=== PATIENT | female | born 1945 | race Caucasian/White ===

== ENCOUNTER 2017-07-28 09:22 | Emergency (ER) | payer MEDICARE, OTHER, MEDICAID | END 2017-07-28 11:30 | disposition home or self-care (01) | LOC: FTE 09:22 | DX: S93.402A Sprain of unspecified ligament of left ankle, initial encounter (principal); W01.0XXA Fall on same level from slipping, tripping and stumbling without subsequent striking against object, initial encounter; Y92.410 Unspecified street and highway as the place of occurrence of the external cause; Z79.84 Long term (current) use of oral hypoglycemic drugs; Z87.891 Personal history of nicotine dependence | CPT/HCPCS: 73610; 99283-25 ==

== ENCOUNTER 2018-05-29 15:27 | Inpatient (IN) | payer MEDICARE, OTHER ==
[2018-05-29 18:13] LABS: ADD MAN DIFF? NO
[2018-05-29] MEDS: SOD CHLORIDE 0.9% 500 ML IV (18:14)
[2018-05-29] MEDS: morphine 2 MG INJ IV ×2 (18:15→21:18)
[2018-05-29 18:16] LABS: BASOPHILS % 0.1 % (0.0-2.0); HEMATOCRIT 40.8 % (37.0-47.0); HEMOGLOBIN 12.4 g/dl (12.0-16.0); LYMPHOCYTES # 1.8 10^3/ul (0.8-2.9); LYMPHOCYTES % 16.1 % (15.0-51.0); MEAN CORPUSCULAR HEMOGLOBIN 21.9 pg (29.0-33.0); MEAN CORPUSCULAR HGB CONC 30.4 g/dl (32.0-37.0); MEAN CORPUSCULAR VOLUME 72.2 fl (82.0-101.0); MEAN PLATELET VOLUME 10.6 fl (7.4-10.4); MONOCYTE # 0.9 10^3/ul (0.3-0.9); MONOCYTES % 7.7 % (0.0-11.0); NEUTROPHIL # 8.4 10^3/ul (1.6-7.5); NEUTROPHILS % 75.7 % (39.0-77.0); PLATELET COUNT 205 10^3/UL (140-415); RED BLOOD COUNT 5.65 10^6/ul (4.20-5.40); RED CELL DISTRIBUTION WIDTH 13.4 % (11.5-14.5)
[2018-05-29 18:16] LABS: WHITE BLOOD COUNT 11.1 10^3/ul (4.8-10.8)
[2018-05-29 18:33] LABS: ANION GAP 13 (5-13); BLOOD UREA NITROGEN 15 mg/dl (7-20); CALCIUM 9.4 mg/dl (8.4-10.2); CARBON DIOXIDE 23 mmol/L (21-31); CHLORIDE 106 mmol/L (97-110); CREATININE 0.55 mg/dl (0.44-1.00); GLUCOSE 236 mg/dl (70-220); POTASSIUM 4.1 mmol/L (3.5-5.1); SODIUM 142 mmol/L (135-144)
[2018-05-29 18:35] LABS: INR 0.94; PROTIME 12.7 Sec (11.9-14.9)
[2018-05-29 18:36] LABS: PARTIAL THROMBOPLASTIN TIME 28.2 Sec (23.0-35.0)
[2018-05-29] MEDS ORDERED: ONDANSETRON 4 MG INJ IV (20:00)
[2018-05-29] MEDS ORDERED: ACETAMINOPHEN 325 MG TAB PO (20:00)
[2018-05-29 21:12] LABS: CREATINE KINASE 43 IU/L (23-200)
[2018-05-29] MEDS: morphine 10 MG INJ IV (21:19)
[2018-05-29 21:25] LABS: CK INDEX 0.9; CK-MB 0.37 ng/ml (0.0-2.4); TROPONIN-I < 0.012 ng/ml (0.000-0.120)
[2018-05-29] MEDS ORDERED: NACL 0.9% 3 ML SYG IV (21:30)
[2018-05-29] MEDS ORDERED: DOCUSATE SODIUM 100 MG CAP PO (21:30)
[2018-05-29] MEDS ORDERED: GLUCAGON 1 MG INJ IM (21:30)
[2018-05-29] MEDS ORDERED: GLUCOSE GEL 15 GRAM TUBE BUCCAL (21:30)
[2018-05-29] MEDS ORDERED: oxyCODONE 5 MG TAB PO (21:30)
[2018-05-29] MEDS ORDERED: DEXTROSE 50% 50 ML SYRINGE IV ×2 (21:30)
[2018-05-29] MEDS ORDERED: GLUCOSE GEL 15 GRAM TUBE PO ×2 (21:30)
[2018-05-29] MEDS: FUROSEMIDE 20 MG INJ IV (23:49)
[2018-05-30] MEDS: RANITIDINE 150 MG TAB PO ×3 (01:00→20:34)
[2018-05-30] MEDS: ATORVASTATIN 20 MG TAB PO ×2 (01:00→20:34)
[2018-05-30] MEDS: MEMANTINE 10 MG TAB PO ×3 (01:00→20:34)
[2018-05-30] MEDS: ASPIRIN (EC) 81 MG TAB PO ×2 (01:00→09:02)
[2018-05-30] MEDS: ACCU-CHEK XX (02:03)
[2018-05-30] MEDS ORDERED: HEPARIN 5,000 UNIT/0.5 ML VIAL ×4 (02:44→13:40)
[2018-05-30] MEDS: HEPARIN 5,000 UNIT/1 ML VIAL SC ×3 (02:53→13:45)
[2018-05-30 03:14] LABS: ADD MAN DIFF? NO
[2018-05-30 03:17] LABS: BASOPHILS % 0.1 % (0.0-2.0); HEMATOCRIT 38.7 % (37.0-47.0); LYMPHOCYTES % 22.3 % (15.0-51.0); MEAN CORPUSCULAR HEMOGLOBIN 22.1 pg (29.0-33.0); MEAN CORPUSCULAR VOLUME 71.1 fl (82.0-101.0); MEAN PLATELET VOLUME 10.4 fl (7.4-10.4); MONOCYTE # 0.7 10^3/ul (0.3-0.9); MONOCYTES % 8.4 % (0.0-11.0); NEUTROPHIL # 6.1 10^3/ul (1.6-7.5); NEUTROPHILS % 68.9 % (39.0-77.0); PLATELET COUNT 203 10^3/UL (140-415); RED BLOOD COUNT 5.44 10^6/ul (4.20-5.40); RED CELL DISTRIBUTION WIDTH 13.6 % (11.5-14.5)
[2018-05-30 03:17] LABS: WHITE BLOOD COUNT 8.8 10^3/ul (4.8-10.8)
[2018-05-30 03:39] LABS: HEMOGLOBIN A1C 7.7 % (0-5.9)
[2018-05-30 03:49] LABS: ALANINE AMINOTRANSFERASE 10 IU/L (13-69); ALBUMIN 3.9 g/dl (3.3-4.9); ALBUMIN/GLOBULIN RATIO 1.18; ALKALINE PHOSPHATASE 69 IU/L (42-121); ANION GAP 11 (5-13); ASPARTATE AMINO TRANSFERASE 18 IU/L (15-46); BILIRUBIN,INDIRECT 0.5 mg/dl (0-1.1); BILIRUBIN,TOTAL 0.5 mg/dl (0.2-1.3); BLOOD UREA NITROGEN 15 mg/dl (7-20); CALCIUM 9.2 mg/dl (8.4-10.2); CARBON DIOXIDE 27 mmol/L (21-31); CHLORIDE 105 mmol/L (97-110); CHOL/HDL RATIO 6.6 RATIO; CHOLESTEROL 266 mg/dl (100-200); CREATINE KINASE 33 IU/L (23-200); CREATININE 0.61 mg/dl (0.44-1.00); GLUCOSE 206 mg/dl (70-220); HDL CHOLESTEROL 40 mg/dl (33-92); LDL CHOLESTEROL,CALCULATED 191 mg/dl; MAGNESIUM 1.8 mg/dl (1.7-2.5); POTASSIUM 4.2 mmol/L (3.5-5.1); SODIUM 143 mmol/L (135-144); TOTAL PROTEIN 7.2 g/dl (6.1-8.1); TRIGLYCERIDES 175 mg/dl (0-149)
[2018-05-30 04:00] LABS: CK-MB 0.34 ng/ml (0.0-2.4); TROPONIN-I < 0.012 ng/ml (0.000-0.120)
[2018-05-30 04:46] LABS: B-TYPE NATRIURETIC PEPTIDE 392 PG/ML (0-125)
[2018-05-30 04:57] LABS: % IRON SATURATION 15 % SAT (22-52)
[2018-05-30 05:03] LABS: IRON 48 ug/dl (35-150); TOTAL IRON BINDING CAPACITY 311 ug/dl (241-421)
[2018-05-30 06:20] LABS: FERRITIN 57.2 ng/ml (11.1-264.0)
[2018-05-30] MEDS: HYDROmorphONE 0.5 MG/0.5 ML SYG IV ×3 (06:40→19:17)
[2018-05-30] MEDS: INSULIN ASPART [NOVOLOG] 3 ML PEN SC ×4 (07:50→20:34)
[2018-05-30] MEDS: FLUTICASONE/VILANTEROL 100-25 INH (09:00)
[2018-05-30] MEDS: AMLODIPINE 5 MG TAB PO (09:00)
[2018-05-30] MEDS: INFLUENZA VIRUS VACCINE 0.5 ML (DISPENSING) IM* (09:06)
[2018-05-30 09:57] LABS: CREATINE KINASE 24 IU/L (23-200)
[2018-05-30 10:10] LABS: CK-MB 0.24 ng/ml (0.0-2.4); TROPONIN-I < 0.012 ng/ml (0.000-0.120)
[2018-05-30] MEDS: DOCUSATE SODIUM 100 MG CAP PO ×2 (13:44→20:33)
[2018-05-30] MEDS: ONDANSETRON 4 MG INJ IV (17:58)
[2018-05-31] MEDS: ACCU-CHEK XX (02:00)
[2018-05-31] MEDS: BISACODYL 10 MG SUPP PR (04:59)
[2018-05-31 05:15] LABS: ADD MAN DIFF? NO; BASOPHILS % 0.1 % (0.0-2.0); HEMATOCRIT 38.8 % (37.0-47.0); HEMOGLOBIN 11.9 g/dl (12.0-16.0); LYMPHOCYTES # 1.7 10^3/ul (0.8-2.9); LYMPHOCYTES % 18.5 % (15.0-51.0); MEAN CORPUSCULAR HGB CONC 30.7 g/dl (32.0-37.0); MEAN CORPUSCULAR VOLUME 71.6 fl (82.0-101.0); MONOCYTE # 0.8 10^3/ul (0.3-0.9); NEUTROPHIL # 6.8 10^3/ul (1.6-7.5); NEUTROPHILS % 73.1 % (39.0-77.0); PLATELET COUNT 204 10^3/UL (140-415); RED BLOOD COUNT 5.42 10^6/ul (4.20-5.40); RED CELL DISTRIBUTION WIDTH 13.5 % (11.5-14.5)
[2018-05-31 05:15] LABS: WHITE BLOOD COUNT 9.3 10^3/ul (4.8-10.8)
[2018-05-31] MEDS: HYDROmorphONE 0.5 MG/0.5 ML SYG IV ×2 (06:12→10:12)
[2018-05-31 06:32] LABS: ANION GAP 10 (5-13); BLOOD UREA NITROGEN 20 mg/dl (7-20); CALCIUM 9.4 mg/dl (8.4-10.2); CARBON DIOXIDE 27 mmol/L (21-31); CHLORIDE 101 mmol/L (97-110); CREATININE 0.61 mg/dl (0.44-1.00); GLUCOSE 189 mg/dl (70-220); MAGNESIUM 1.8 mg/dl (1.7-2.5); PHOSPHORUS 3.6 mg/dl (2.5-4.9); POTASSIUM 3.9 mmol/L (3.5-5.1); SODIUM 138 mmol/L (135-144)
[2018-05-31] MEDS ORDERED: DESFLURANE 15 MIN (07:00)
[2018-05-31] MEDS ORDERED: ALBUMIN HUMAN 5% 250 ML INJ (07:00)
[2018-05-31] MEDS: INSULIN ASPART [NOVOLOG] 3 ML PEN SC ×4 (08:34→21:14)
[2018-05-31] MEDS: DEXTROSE 5%-0.45% NACL 1,000 ML IV ×2 (08:40→22:01)
[2018-05-31] MEDS: RANITIDINE 150 MG TAB PO ×2 (09:00→20:51)
[2018-05-31] MEDS: FLUTICASONE/VILANTEROL 100-25 INH (09:00)
[2018-05-31] MEDS: MEMANTINE 10 MG TAB PO ×2 (09:00→21:14)
[2018-05-31] MEDS: DOCUSATE SODIUM 100 MG CAP PO ×2 (09:00→20:49)
[2018-05-31] MEDS: ASPIRIN (EC) 81 MG TAB PO (09:00)
[2018-05-31] MEDS: AMLODIPINE 5 MG TAB PO (09:00)
[2018-05-31] MEDS ORDERED: PROPOFOL 20 ML (14:36)
[2018-05-31] MEDS ORDERED: GLYCOPYRROLATE 0.4 MG INJ (14:36)
[2018-05-31] MEDS ORDERED: ROCURONIUM 50 MG INJ (14:36)
[2018-05-31] MEDS ORDERED: morphine SULFATE/PF (10 MG/10 ML) INJ (14:37)
[2018-05-31] MEDS ORDERED: NEOSTIGMINE 3 MG/3 ML SYRINGE (14:37)
[2018-05-31] MEDS ORDERED: ONDANSETRON 4 MG INJ (14:37)
[2018-05-31] MEDS ORDERED: CEFAZOLIN 1 GM INJ (14:37)
[2018-05-31] MEDS ORDERED: FENTAnyl 50 MCG/ML VIAL (14:37)
[2018-05-31] MEDS ORDERED: DEXAMETHASONE 4 MG/ML 1 ML INJ (14:37)
[2018-05-31] MEDS ORDERED: MIDAZOLAM 1 MG/ML 2 ML INJ (14:37)
[2018-05-31] MEDS ORDERED: HYDROmorphONE 1 MG/ML SYG IV (18:00)
[2018-05-31] MEDS ORDERED: NACL 0.9% 3 ML SYG IV (18:00)
[2018-05-31] MEDS ORDERED: CEFAZOLIN 1 GM/50 ML (PMX) 50 ML IVPB (18:09)
[2018-05-31] MEDS ORDERED: METOCLOPRAMIDE 10 MG INJ (18:22)
[2018-05-31] MEDS ORDERED: NALBUPHINE HCL (10 MG/1 ML) INJ IV (18:30)
[2018-05-31] MEDS ORDERED: LABETALOL HCL 20MG INJ IV (18:30)
[2018-05-31] MEDS ORDERED: morphine 4 MG/ML VIAL IV (18:30)
[2018-05-31] MEDS ORDERED: NALOXONE (0.4 MG/ML) INJ IV (18:30)
[2018-05-31] MEDS ORDERED: ONDANSETRON 4 MG INJ IV ×2 (18:30)
[2018-05-31] MEDS ORDERED: TRIMETHOBENZAMIDE 100 MG/ML VIAL IM (18:30)
[2018-05-31] MEDS ORDERED: DIPHENHYDRAMINE 50 MG INJ IV (18:30)
[2018-05-31] MEDS ORDERED: hydrALAzine 20 MG INJ IV (18:30)
[2018-05-31] MEDS ORDERED: ZOLPIDEM 5 MG TAB PO (18:30)
[2018-05-31] MEDS ORDERED: FENTAnyl 50 MCG/ML VIAL IV ×3 (18:30)
[2018-05-31] MEDS ORDERED: HYDROmorphONE 1 MG/5 ML IV SYRINGE IV ×3 (18:30)
[2018-05-31] MEDS ORDERED: HYDROmorphONE 0.5 MG/0.5 ML SYG IV ×2 (18:30)
[2018-05-31] MEDS: CEFAZOLIN 1 GM/50 ML (PMX) 50 ML IVPB (18:34)
[2018-05-31] MEDS: METOCLOPRAMIDE 10 MG INJ IV (18:38)
[2018-05-31 18:46] LABS: HEMATOCRIT 31.9 % (37.0-47.0); HEMOGLOBIN 9.8 g/dl (12.0-16.0)
[2018-05-31 19:13] LABS: ANION GAP 10 (5-13); BLOOD UREA NITROGEN 16 mg/dl (7-20); CALCIUM 8.3 mg/dl (8.4-10.2); CARBON DIOXIDE 26 mmol/L (21-31); CHLORIDE 104 mmol/L (97-110); CREATININE 0.48 mg/dl (0.44-1.00); GLUCOSE 222 mg/dl (70-220); POTASSIUM 3.7 mmol/L (3.5-5.1); SODIUM 140 mmol/L (135-144)
[2018-05-31] MEDS: LACTATED RINGER'S 1,000 ML IV (20:28)
[2018-05-31] MEDS: ATORVASTATIN 20 MG TAB PO (20:51)
[2018-06-01] MEDS: LACTATED RINGER'S 1,000 ML IV ×2 (00:46→05:21)
[2018-06-01] MEDS: CEFAZOLIN 1 GM/50 ML (PMX) 50 ML IVPB ×2 (01:50→09:55)
[2018-06-01] MEDS: ACCU-CHEK XX (01:50)
[2018-06-01 05:09] LABS: ADD MAN DIFF? NO
[2018-06-01] MEDS: DEXTROSE 5%-0.45% NACL 1,000 ML IV (05:18)
[2018-06-01 05:21] LABS: WHITE BLOOD COUNT 8.2 10^3/ul (4.8-10.8)
[2018-06-01 05:21] LABS: HEMATOCRIT 30.2 % (37.0-47.0); HEMOGLOBIN 9.3 g/dl (12.0-16.0); LYMPHOCYTES # 0.7 10^3/ul (0.8-2.9); LYMPHOCYTES % 8.6 % (15.0-51.0); MEAN CORPUSCULAR HEMOGLOBIN 22.1 pg (29.0-33.0); MEAN CORPUSCULAR HGB CONC 30.8 g/dl (32.0-37.0); MEAN CORPUSCULAR VOLUME 71.7 fl (82.0-101.0); MONOCYTE # 0.6 10^3/ul (0.3-0.9); MONOCYTES % 6.7 % (0.0-11.0); NEUTROPHIL # 6.9 10^3/ul (1.6-7.5); NEUTROPHILS % 84.1 % (39.0-77.0); PLATELET COUNT 141 10^3/UL (140-415); RED BLOOD COUNT 4.21 10^6/ul (4.20-5.40); RED CELL DISTRIBUTION WIDTH 13.2 % (11.5-14.5)
[2018-06-01 05:42] LABS: ANION GAP 11 (5-13); BLOOD UREA NITROGEN 16 mg/dl (7-20); CALCIUM 8.6 mg/dl (8.4-10.2); CARBON DIOXIDE 28 mmol/L (21-31); CHLORIDE 101 mmol/L (97-110); CREATININE 0.49 mg/dl (0.44-1.00); GLUCOSE 228 mg/dl (70-220); MAGNESIUM 1.5 mg/dl (1.7-2.5); PHOSPHORUS 4.3 mg/dl (2.5-4.9); POTASSIUM 4.3 mmol/L (3.5-5.1); SODIUM 140 mmol/L (135-144)
[2018-06-01] MEDS: ASPIRIN (EC) 81 MG TAB PO (08:56)
[2018-06-01] MEDS: MEMANTINE 10 MG TAB PO ×2 (08:57→20:25)
[2018-06-01] MEDS: DOCUSATE SODIUM 100 MG CAP PO ×2 (08:57→20:26)
[2018-06-01] MEDS: FLUTICASONE/VILANTEROL 100-25 INH (08:57)
[2018-06-01] MEDS: AMLODIPINE 5 MG TAB PO (08:57)
[2018-06-01] MEDS: RANITIDINE 150 MG TAB PO ×2 (08:58→20:25)
[2018-06-01] MEDS: ENOXAPARIN 40 MG/0.4 ML SYG SC (08:59)
[2018-06-01] MEDS: INSULIN ASPART [NOVOLOG] 3 ML PEN SC ×5 (08:59→22:33)
[2018-06-01] MEDS: MAGNESIUM SULFATE 2 GM/50 ML 50 ML IVPB (12:23)
[2018-06-01] MEDS: ACETAMINOPHEN 325 MG TAB PO (12:23)
[2018-06-01] MEDS: KETOROLAC 30 MG INJ IV ×2 (17:31→23:54)
[2018-06-01] MEDS: HYDROmorphONE 0.5 MG/0.5 ML SYG IV (20:25)
[2018-06-01] MEDS: ATORVASTATIN 20 MG TAB PO (20:26)
[2018-06-01] MEDS: INSULIN GLARGINE [LANTus] (100 UNITS/ML) SYG SC (22:34)
[2018-06-02] MEDS: ACCU-CHEK XX (03:00)
[2018-06-02 05:19] LABS: ADD MAN DIFF? NO
[2018-06-02 05:26] LABS: WHITE BLOOD COUNT 8.3 10^3/ul (4.8-10.8)
[2018-06-02 05:26] LABS: BASOPHILS % 0.1 % (0.0-2.0); HEMATOCRIT 29.5 % (37.0-47.0); HEMOGLOBIN 9.2 g/dl (12.0-16.0); LYMPHOCYTES # 1.7 10^3/ul (0.8-2.9); LYMPHOCYTES % 20.4 % (15.0-51.0); MEAN CORPUSCULAR HEMOGLOBIN 22.1 pg (29.0-33.0); MEAN CORPUSCULAR HGB CONC 31.2 g/dl (32.0-37.0); MEAN CORPUSCULAR VOLUME 70.9 fl (82.0-101.0); MONOCYTE # 0.8 10^3/ul (0.3-0.9); MONOCYTES % 10.1 % (0.0-11.0); NEUTROPHIL # 5.7 10^3/ul (1.6-7.5); NEUTROPHILS % 68.9 % (39.0-77.0); PLATELET COUNT 151 10^3/UL (140-415); RED BLOOD COUNT 4.16 10^6/ul (4.20-5.40); RED CELL DISTRIBUTION WIDTH 13.2 % (11.5-14.5)
[2018-06-02 05:48] LABS: ANION GAP 8 (5-13); BLOOD UREA NITROGEN 19 mg/dl (7-20); CALCIUM 8.1 mg/dl (8.4-10.2); CARBON DIOXIDE 31 mmol/L (21-31); CHLORIDE 100 mmol/L (97-110); CREATININE 0.59 mg/dl (0.44-1.00); GLUCOSE 222 mg/dl (70-220); MAGNESIUM 2.1 mg/dl (1.7-2.5); PHOSPHORUS 2.5 mg/dl (2.5-4.9); POTASSIUM 3.2 mmol/L (3.5-5.1); SODIUM 139 mmol/L (135-144)
[2018-06-02] MEDS: RANITIDINE 150 MG TAB PO ×2 (08:47→20:21)
[2018-06-02] MEDS: ASPIRIN (EC) 81 MG TAB PO (08:47)
[2018-06-02] MEDS: AMLODIPINE 5 MG TAB PO (08:48)
[2018-06-02] MEDS: DOCUSATE SODIUM 100 MG CAP PO ×2 (08:48→20:21)
[2018-06-02] MEDS: MEMANTINE 10 MG TAB PO ×2 (08:48→20:21)
[2018-06-02] MEDS: FLUTICASONE/VILANTEROL 100-25 INH (08:49)
[2018-06-02] MEDS: INSULIN ASPART [NOVOLOG] 3 ML PEN SC ×5 (08:51→21:30)
[2018-06-02] MEDS: ENOXAPARIN 40 MG/0.4 ML SYG SC (08:59)
[2018-06-02] MEDS: metFORMIN 500 MG TAB PO (10:59)
[2018-06-02] MEDS: POTASSIUM CHLORIDE (SR) 20 MEQ TAB PO ×2 (10:59→15:07)
[2018-06-02] MEDS: HYDROCODONE/APAP (5/325) TAB PO ×2 (10:59→21:33)
[2018-06-02] MEDS: LINAGLIPTIN 5 MG TABLET PO (12:58)
[2018-06-02] MEDS: BISACODYL (EC) 5 MG TAB PO (12:58)
[2018-06-02] MEDS: KETOROLAC 30 MG INJ IV (12:58)
[2018-06-02] MEDS: ATORVASTATIN 20 MG TAB PO (20:21)
[2018-06-03] MEDS: ACCU-CHEK XX (02:15)
[2018-06-03 05:30] LABS: ADD MAN DIFF? NO
[2018-06-03 05:37] LABS: WHITE BLOOD COUNT 7.3 10^3/ul (4.8-10.8)
[2018-06-03 05:37] LABS: HEMATOCRIT 27.9 % (37.0-47.0); HEMOGLOBIN 8.6 g/dl (12.0-16.0); LYMPHOCYTES % 26.7 % (15.0-51.0); MEAN CORPUSCULAR HEMOGLOBIN 22.2 pg (29.0-33.0); MEAN CORPUSCULAR HGB CONC 30.8 g/dl (32.0-37.0); MEAN CORPUSCULAR VOLUME 72.1 fl (82.0-101.0); MONOCYTE # 0.8 10^3/ul (0.3-0.9); MONOCYTES % 10.2 % (0.0-11.0); NEUTROPHIL # 4.6 10^3/ul (1.6-7.5); NEUTROPHILS % 62.7 % (39.0-77.0); PLATELET COUNT 156 10^3/UL (140-415); RED BLOOD COUNT 3.87 10^6/ul (4.20-5.40); RED CELL DISTRIBUTION WIDTH 13.8 % (11.5-14.5)
[2018-06-03 06:01] LABS: ANION GAP 8 (5-13); BLOOD UREA NITROGEN 14 mg/dl (7-20); CALCIUM 7.9 mg/dl (8.4-10.2); CARBON DIOXIDE 28 mmol/L (21-31); CHLORIDE 104 mmol/L (97-110); CREATININE 0.46 mg/dl (0.44-1.00); GLUCOSE 167 mg/dl (70-220); MAGNESIUM 2.1 mg/dl (1.7-2.5); PHOSPHORUS 2.6 mg/dl (2.5-4.9); POTASSIUM 3.6 mmol/L (3.5-5.1); SODIUM 140 mmol/L (135-144)
[2018-06-03] MEDS: DOCUSATE SODIUM 100 MG CAP PO (08:53)
[2018-06-03] MEDS: metFORMIN 500 MG TAB PO (08:53)
[2018-06-03] MEDS: ASPIRIN (EC) 81 MG TAB PO (08:54)
[2018-06-03] MEDS: LINAGLIPTIN 5 MG TABLET PO (08:55)
[2018-06-03] MEDS: RANITIDINE 150 MG TAB PO (08:55)
[2018-06-03] MEDS: MEMANTINE 10 MG TAB PO (08:56)
[2018-06-03] MEDS: ENOXAPARIN 40 MG/0.4 ML SYG SC (08:59)
[2018-06-03] MEDS: FLUTICASONE/VILANTEROL 100-25 INH (09:00)
[2018-06-03] MEDS: INSULIN ASPART [NOVOLOG] 3 ML PEN SC ×2 (09:00→12:48)
[2018-06-03] MEDS: AMLODIPINE 5 MG TAB PO (09:00)
[2018-06-03] MEDS ORDERED: OXYCODONE/ACETAMINOPHEN (10/325) TAB PO (09:30)
[2018-06-03] MEDS ORDERED: OXYCODONE/ACETAMINOPHEN (5/325) TAB PO (09:30)
[2018-06-03 11:56] LABS: HEMATOCRIT 28.7 % (37.0-47.0); HEMOGLOBIN 8.9 g/dl (12.0-16.0)
[2018-06-03] MEDS: INSULIN GLARGINE [LANTus] (100 UNITS/ML) SYG SC (12:52)
[2018-06-04] MEDS ORDERED: ASPIRIN 325 MG TAB PO (09:00)
== END 2018-06-03 14:20 | DRG 470 ==
LOC: MS1 19:53 → E/R 15:27
PROC: 0SRS0JA Replacement of Left Hip Joint, Femoral Surface with Synthetic Substitute, Uncemented, Open Approach (ICD-10-PCS; principal; 2018-05-31 14:57)
DX: S72.012A Unspecified intracapsular fracture of left femur, initial encounter for closed fracture (principal); D62 Acute posthemorrhagic anemia; J44.9 Chronic obstructive pulmonary disease, unspecified; F02.80 Dementia in other diseases classified elsewhere, unspecified severity, without behavioral disturbance, psychotic disturbance, mood disturbance, and anxiety; E11.9 Type 2 diabetes mellitus without complications; G30.9 Alzheimer's disease, unspecified; E78.5 Hyperlipidemia, unspecified; W10.8XXA Fall (on) (from) other stairs and steps, initial encounter; Y93.89 Activity, other specified; Y92.89 Other specified places as the place of occurrence of the external cause; Y99.8 Other external cause status; Z79.4 Long term (current) use of insulin; Z79.02 Long term (current) use of antithrombotics/antiplatelets; Z79.82 Long term (current) use of aspirin
CPT/HCPCS: 36415; 71045; 72170; 72192; 73500; 73510; 80048; 80053; 80061; 82550; 82553; 82728; 82962; 83036; 83540; 83735; 83880; 84100; 84443; 84484; 85014; 85018; 85025; 85610; 85730; 88305; 90686; 93005; 93306; 93971; 96374; 97110; 97116; 97162; 97530; 99285-25

== ENCOUNTER 2018-06-03 14:27 | Inpatient (IN) | payer MEDICARE, OTHER ==
[2018-06-03] MEDS ORDERED: BISACODYL 10 MG SUPP PR (14:30)
[2018-06-03] MEDS ORDERED: PENDING SANTYL ORDER FOR WOUND CARE XX (14:30)
[2018-06-03] MEDS ORDERED: ACETAMINOPHEN 325 MG TAB PO ×2 (14:30→16:00)
[2018-06-03] MEDS ORDERED: LACTULOSE 30ML CUP PO (14:30)
[2018-06-03] MEDS ORDERED: MAGNESIUM HYDROXIDE 30ML CUP PO (14:30)
[2018-06-03] MEDS ORDERED: BISACODYL (EC) 5 MG TAB PO (16:00)
[2018-06-03] MEDS ORDERED: GLUCOSE GEL 15 GRAM TUBE PO ×2 (16:00)
[2018-06-03] MEDS ORDERED: OXYCODONE/ACETAMINOPHEN (5/325) TAB PO (16:00)
[2018-06-03] MEDS ORDERED: DEXTROSE 50% 50 ML SYRINGE IV ×2 (16:00)
[2018-06-03] MEDS ORDERED: GLUCOSE GEL 15 GRAM TUBE BUCCAL (16:00)
[2018-06-03] MEDS ORDERED: GLUCAGON 1 MG INJ IM (16:00)
[2018-06-03] MEDS ORDERED: NACL 0.9% 3 ML SYG IV (16:00)
[2018-06-03] MEDS ORDERED: NALOXONE (0.4 MG/ML) INJ IV (16:00)
[2018-06-03] MEDS: INSULIN ASPART [NOVOLOG] 3 ML PEN SC ×2 (17:30→20:31)
[2018-06-03] MEDS: OXYCODONE/ACETAMINOPHEN (10/325) TAB PO ×2 (17:33→22:39)
[2018-06-03 18:18] LABS: ADD UMIC YES; UR ASCORBIC ACID NEGATIVE (NEGATIVE); UR BILIRUBIN (Dip) NEGATIVE (NEGATIVE); UR BLOOD (Dip) NEGATIVE (NEGATIVE); UR BUDDING YEAST FEW /HPF (NONE SEEN); UR CLARITY CLEAR (CLEAR); UR COLOR YELLOW (YELLOW); UR GLUCOSE (Dip) 3+ mg/dL (NEGATIVE); UR KETONES (Dip) NEGATIVE (NEGATIVE); UR LEUKOCYTE ESTERASE (Dip) 1+ Leu/ul (NEGATIVE); UR NITRITE (Dip) NEGATIVE (NEGATIVE); UR RBC 3 /HPF (0-5); UR SPECIFIC GRAVITY (Dip) 1.029 (1.003-1.030); UR SQUAMOUS EPITHELIAL CELL FEW /HPF (FEW); UR TOTAL PROTEIN (Dip) NEGATIVE (NEGATIVE); UR UROBILINOGEN (Dip) 1+ mg/dL (NEGATIVE); UR WBC 20 /HPF (0-5)
[2018-06-03] MEDS: SENNA TAB PO (20:27)
[2018-06-03] MEDS: RANITIDINE 150 MG TAB PO (20:27)
[2018-06-03] MEDS: DOCUSATE SODIUM 100 MG CAP PO (20:27)
[2018-06-03] MEDS ORDERED: DOCUSATE SODIUM 100 MG CAP PO (21:00)
[2018-06-03] MEDS: MEMANTINE 10 MG TAB PO (21:00)
[2018-06-03] MEDS: ATORVASTATIN 20 MG TAB PO (21:00)
[2018-06-04] MEDS: ACCU-CHEK XX (02:06)
[2018-06-04 06:58] LABS: ADD MAN DIFF? NO
[2018-06-04 07:16] LABS: WHITE BLOOD COUNT 6.6 10^3/ul (4.8-10.8)
[2018-06-04 07:16] LABS: BASOPHILS % 0.2 % (0.0-2.0); HEMOGLOBIN 8.6 g/dl (12.0-16.0); LYMPHOCYTES # 1.9 10^3/ul (0.8-2.9); LYMPHOCYTES % 29.3 % (15.0-51.0); MEAN CORPUSCULAR HEMOGLOBIN 22.4 pg (29.0-33.0); MEAN CORPUSCULAR HGB CONC 30.7 g/dl (32.0-37.0); MEAN CORPUSCULAR VOLUME 72.9 fl (82.0-101.0); MEAN PLATELET VOLUME 10.6 fl (7.4-10.4); MONOCYTE # 0.7 10^3/ul (0.3-0.9); MONOCYTES % 10.3 % (0.0-11.0); NEUTROPHIL # 3.9 10^3/ul (1.6-7.5); NEUTROPHILS % 59.6 % (39.0-77.0); PLATELET COUNT 182 10^3/UL (140-415); RED BLOOD COUNT 3.84 10^6/ul (4.20-5.40); RED CELL DISTRIBUTION WIDTH 13.7 % (11.5-14.5)
[2018-06-04 07:37] LABS: ALANINE AMINOTRANSFERASE 19 IU/L (13-69); ALBUMIN 2.9 g/dl (3.3-4.9); ALBUMIN/GLOBULIN RATIO 1.03; ALKALINE PHOSPHATASE 61 IU/L (42-121); ASPARTATE AMINO TRANSFERASE 17 IU/L (15-46); BILIRUBIN,INDIRECT 0.3 mg/dl (0-1.1); BILIRUBIN,TOTAL 0.3 mg/dl (0.2-1.3); BLOOD UREA NITROGEN 12 mg/dl (7-20); CALCIUM 8.3 mg/dl (8.4-10.2); CARBON DIOXIDE 32 mmol/L (21-31); CREATININE 0.48 mg/dl (0.44-1.00); GLUCOSE 164 mg/dl (70-220); POTASSIUM 3.9 mmol/L (3.5-5.1); SODIUM 141 mmol/L (135-144); TOTAL PROTEIN 5.7 g/dl (6.1-8.1)
[2018-06-04] MEDS: OXYCODONE/ACETAMINOPHEN (10/325) TAB PO ×2 (08:21→21:57)
[2018-06-04] MEDS: FLUTICASONE/VILANTEROL 100-25 INH (08:22)
[2018-06-04] MEDS: metFORMIN 500 MG TAB PO (08:22)
[2018-06-04 08:24] LABS: ANION GAP 7 (5-13); CHLORIDE 102 mmol/L (97-110)
[2018-06-04] MEDS: AMLODIPINE 5 MG TAB PO (08:24)
[2018-06-04] MEDS: ASPIRIN 325 MG TAB PO (08:26)
[2018-06-04] MEDS: INSULIN ASPART [NOVOLOG] 3 ML PEN SC ×4 (08:28→20:35)
[2018-06-04] MEDS: INSULIN GLARGINE [LANTus] (100 UNITS/ML) SYG SC (08:29)
[2018-06-04] MEDS: DOCUSATE SODIUM 100 MG CAP PO ×2 (08:35→20:38)
[2018-06-04] MEDS: MEMANTINE 10 MG TAB PO ×2 (08:36→20:39)
[2018-06-04] MEDS: LINAGLIPTIN 5 MG TABLET PO (08:36)
[2018-06-04] MEDS: RANITIDINE 150 MG TAB PO ×2 (09:00→20:39)
[2018-06-04] MEDS ORDERED: SOD FERRIC GLUC COMPLX 125 MG in SOD CHLORIDE 0.9% 100 ML IVPB (13:00)
[2018-06-04] MEDS: SENNA TAB PO (20:39)
[2018-06-04] MEDS: ATORVASTATIN 20 MG TAB PO (20:39)
[2018-06-04] MEDS: ONDANSETRON 4 MG INJ IV (22:49)
[2018-06-05] MEDS: ACCU-CHEK XX (02:00)
[2018-06-05] MEDS: metFORMIN 500 MG TAB PO (07:35)
[2018-06-05] MEDS: RANITIDINE 150 MG TAB PO (08:22)
[2018-06-05] MEDS: INSULIN GLARGINE [LANTus] (100 UNITS/ML) SYG SC (08:23)
[2018-06-05] MEDS: FLUTICASONE/VILANTEROL 100-25 INH (08:23)
[2018-06-05] MEDS: INSULIN ASPART [NOVOLOG] 3 ML PEN SC ×4 (08:24→20:41)
[2018-06-05] MEDS: OXYCODONE/ACETAMINOPHEN (10/325) TAB PO ×2 (08:32→22:01)
[2018-06-05 08:58] LABS: ADD MAN DIFF? NO
[2018-06-05] MEDS: DOCUSATE SODIUM 100 MG CAP PO ×2 (09:00→20:51)
[2018-06-05] MEDS: LINAGLIPTIN 5 MG TABLET PO (09:00)
[2018-06-05] MEDS: ASPIRIN 325 MG TAB PO (09:00)
[2018-06-05] MEDS: MEMANTINE 10 MG TAB PO ×2 (09:00→20:53)
[2018-06-05] MEDS: AMLODIPINE 5 MG TAB PO (09:00)
[2018-06-05 09:01] LABS: BASOPHILS % 0.1 % (0.0-2.0); HEMATOCRIT 33.8 % (37.0-47.0); HEMOGLOBIN 10.3 g/dl (12.0-16.0); LYMPHOCYTES # 1.4 10^3/ul (0.8-2.9); LYMPHOCYTES % 16.2 % (15.0-51.0); MEAN CORPUSCULAR HEMOGLOBIN 22.2 pg (29.0-33.0); MEAN CORPUSCULAR HGB CONC 30.5 g/dl (32.0-37.0); MEAN CORPUSCULAR VOLUME 72.7 fl (82.0-101.0); MONOCYTE # 0.8 10^3/ul (0.3-0.9); MONOCYTES % 8.8 % (0.0-11.0); NEUTROPHIL # 6.4 10^3/ul (1.6-7.5); NEUTROPHILS % 74.2 % (39.0-77.0); PLATELET COUNT 285 10^3/UL (140-415); RED BLOOD COUNT 4.65 10^6/ul (4.20-5.40); RED CELL DISTRIBUTION WIDTH 13.2 % (11.5-14.5)
[2018-06-05 09:01] LABS: WHITE BLOOD COUNT 8.6 10^3/ul (4.8-10.8)
[2018-06-05 09:02] LABS: RETICULOCYTE COUNT # 0.103 X10^6 (0.020-0.110); RETICULOCYTE COUNT % 2.2 % (0.5-1.5)
[2018-06-05 09:02] LABS: RETICULOCYTE RBC 4.61
[2018-06-05 09:31] LABS: ANION GAP 13 (5-13); BLOOD UREA NITROGEN 10 mg/dl (7-20); CALCIUM 9.2 mg/dl (8.4-10.2); CARBON DIOXIDE 30 mmol/L (21-31); CHLORIDE 99 mmol/L (97-110); GLUCOSE 190 mg/dl (70-220); IRON 37 ug/dl (35-150); MAGNESIUM 1.7 mg/dl (1.7-2.5); PHOSPHORUS 4.2 mg/dl (2.5-4.9); POTASSIUM 3.5 mmol/L (3.5-5.1); SODIUM 142 mmol/L (135-144)
[2018-06-05 09:40] LABS: % IRON SATURATION 15 % SAT (22-52); TOTAL IRON BINDING CAPACITY 245 ug/dl (241-421)
[2018-06-05] MEDS ORDERED: PANTOPRAZOLE 40 MG INJ IV (10:00)
[2018-06-05 10:39] LABS: LACTATE DEHYDROGENASE 602 IU/L (313-618)
[2018-06-05 11:15] LABS: FERRITIN 74.9 ng/ml (11.1-264.0)
[2018-06-05] MEDS: ONDANSETRON 4 MG TAB PO (11:27)
[2018-06-05] MEDS: PANTOPRAZOLE (EC) 40 MG TAB PO (11:27)
[2018-06-05] MEDS: SUCRALFATE (100 MG/ML) 10ML CUP PO ×3 (11:53→20:51)
[2018-06-05] MEDS: ATORVASTATIN 20 MG TAB PO (20:53)
[2018-06-05] MEDS: SENNA TAB PO (20:55)
[2018-06-06] MEDS: ACCU-CHEK XX (02:00)
[2018-06-06] MEDS: PANTOPRAZOLE (EC) 40 MG TAB PO ×2 (06:00→07:14)
[2018-06-06] MEDS: SUCRALFATE (100 MG/ML) 10ML CUP PO ×2 (07:14→11:30)
[2018-06-06] MEDS: metFORMIN 500 MG TAB PO (07:35)
[2018-06-06] MEDS: INSULIN ASPART [NOVOLOG] 3 ML PEN SC ×2 (07:35→12:00)
[2018-06-06] MEDS: FLUTICASONE/VILANTEROL 100-25 INH (08:30)
[2018-06-06] MEDS: INSULIN GLARGINE [LANTus] (100 UNITS/ML) SYG SC (08:34)
[2018-06-06] MEDS: MEMANTINE 10 MG TAB PO (09:00)
[2018-06-06] MEDS: AMLODIPINE 5 MG TAB PO (09:00)
[2018-06-06] MEDS: LINAGLIPTIN 5 MG TABLET PO (09:00)
[2018-06-06] MEDS: DOCUSATE SODIUM 100 MG CAP PO (09:00)
[2018-06-06] MEDS: ASPIRIN 325 MG TAB PO (09:00)
[2018-06-06] MEDS: OXYCODONE/ACETAMINOPHEN (10/325) TAB PO (11:52)
[2018-06-08 09:47] LABS: HAPTOGLOBIN 451 mg/dL (43-212)
== END 2018-06-06 12:00 | disposition home health service (06) | DRG 560 ==
LOC: VRC 14:27
PROVIDERS: Physical Medicine & Rehabilitation
PROC: F07Z5ZZ Bed Mobility Treatment (ICD-10-PCS; principal; 2018-06-03)
PROC: F08Z2ZZ Grooming/Personal Hygiene Treatment (ICD-10-PCS; 2018-06-03)
DX: Z47.1 Aftercare following joint replacement surgery (principal); I42.9 Cardiomyopathy, unspecified; S72.002D Fracture of unspecified part of neck of left femur, subsequent encounter for closed fracture with routine healing; G89.18 Other acute postprocedural pain; W19.XXXD Unspecified fall, subsequent encounter; E11.9 Type 2 diabetes mellitus without complications; I10 Essential (primary) hypertension; E78.5 Hyperlipidemia, unspecified; G30.9 Alzheimer's disease, unspecified; Z79.4 Long term (current) use of insulin; J44.9 Chronic obstructive pulmonary disease, unspecified; D64.9 Anemia, unspecified; Z96.642 Presence of left artificial hip joint; Z79.82 Long term (current) use of aspirin
CPT/HCPCS: 80048; 80053; 81001; 82728; 82962; 83010; 83540; 83615; 83735; 84100; 85025; 85045; 87081; 87086; 97110; 97116; 97163; 97165; 97530; 97535